=== PATIENT | male | born 1985 | race Hispanic/Latino ===

== ENCOUNTER 2018-06-06 20:10 | Emergency (ER) | payer SELFPAY ==
[2018-06-06] MEDS ORDERED: HYDROcodone/Acetaminophen 5/325 mg Tablet ONE ×2 (20:40→20:47)
[2018-06-06] MEDS ORDERED: Ibuprofen 800 MG TAB ONE (20:41)
--- NOTE | 2018-06-06 21:16 | RAD ---
LEFT KNEE FOUR VIEWS: 06/06/18 INDICATION: Pain, injury. FINDINGS: There is moderate joint capsular distention. Fat fluid level is suggested indicating lipohemarthrosis . There is a subtle linear lucency of the proximal tibia involving the metaphyseal region and extendi ng to the lateral tibial spine. IMPRESSION: Proximal tibial fracture with intra-articular extension, and associated lipohemarthrosis. Recommend o rthopedic consultation. POS: [id number]
[2018-06-06] MEDS ORDERED: HYDROcodone/Acetaminophen 10/325 mg Tablet ONE (21:25)
== END 2018-06-06 21:51 | disposition home or self-care (01) ==
LOC: ERS 20:10
DX: S82.145A Nondisplaced bicondylar fracture of left tibia, initial encounter for closed fracture (principal); W17.89XA Other fall from one level to another, initial encounter